=== PATIENT | female | born 2000 | race Asian ===

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

== ENCOUNTER 2019-02-23 16:24 | Emergency (ER) | payer OTHER ==
--- OUTSIDE RECORDS SUMMARY | 2019-02-23 16:41 | XMS REPORT | Continuity of Care Document ---
:2000 Author Organization [facility] Address [address] [place] [address] Phone Care Team Providers Name Role Phone Richard Courtney NP Unavailable Unavailable Allergies, Adverse Reactions, Alerts Substance Reaction Status No Known Allergies Active Medications Medication Instructions Dosage Effective Dates Status Comments (start - stop) Depo-Provera 150 IM Q 11-13 weeks - Active mg/mL intramuscular suspension XANAX (unknown Not Available - Active strength) lithium carbonate take 1 capsule by 300 MG - Active 300 mg capsule oral route 2 times every day Adderall 5 mg tablet - Active Lexapro 5 mg tablet - Active Depo-Provera 150 - Active mg/mL intramuscular suspension Problems Condition Effective Dates (start - Clinical Status Comments stop) Human immunodeficiency virus [HIV] - counseling Encntr screen for infections w sexl mode of transmiss Encounter for oth general cnsl and advice on contraception Encounter for screening for human - immunodeficiency virus Encounter for initial prescription of injectable contracep Encounter for surveillance of injectable contraceptive Encntr screen for infections w sexl mode of transmiss Human immunodeficiency virus [HIV] - counseling Encounter for screening for human - immunodeficiency virus Encounter for surveillance of injectable contraceptive Encntr screen for infections w sexl mode of transmiss Procedures Procedure Date PREVENTIVE COUNSELING, 8-14 Minutes N.GONORRHOEAE, DNA, AMP PROB CHYLMD DNA, AMP PROBE TRICHOMONAS VAGIN, DIR PROBE OFFICE/OUTPATIENT VISIT, EST HIV-1/HIV-2, SINGLE ASSAY OTHER Medical Services Contraceptive Felt Tipping Machine Tender.Svc. Other Felt Tipping Machine Tender.Svc. STI Results Test Name Date and Time Measure Units Reference Range Abnormal Flag Status Comments No information Advance Directives Directive Yes / No Effective Date File Name No information Encounters Encounter Practice Location Reason(s) Diagnoses Date Provider Providers Description For Visit Copied on Encounter PREVENTIVE [facility] STI Human [place]- Referring COUNSELING, [facility] [place] Testing No immunodeficiency [place] Provider: 8-14 Minutes Southern Symptoms virus [HIV] 9 [place]. [place] Finger (F) (chief counselingEncntr [address] [place], [address] complaint) screen for [address] [place], [address] infections [address], [address], [place], mode of [place], [place], [place], transmissEncounter [place], [place], [id number], [place] [address]. [place], [address]. [place] cnsl and advice on tel:+ tel:+[phone] tel:+[phone] contraceptionEncoun [phone] for screening for human immunodeficiency virus [facility] Encounter for Dec- White Referring [facility] [place] initial [place]. Provider: [facility] prescription of [address] [place] [address] injectable [place], [address], [address] [place], St, St, [place], [place], [place], [address], [place], [address]. [id number], [place]. [place] tel:[phone] [facility] Encounter for Mar- White Referring [facility] [place] surveillance of [place]. Provider: [facility] injectable [address] [place] [address] contraceptiveEncntr [place], [address] [place] infections w sexl [place], St, St, [place], [place], [place], [address], [place], [address]. [id number], [place]. [place] tel:[phone] [facility] Human Julio C- White Referring [facility] [place] immunodeficiency [place]. Provider: [place] virus [HIV] 9 [address] [address] counselingEncounter [place], [address], [address] [place] human [place], St, St, [place], immunodeficiency [place], [place] [address], [place], [address]. [id number], surveillance of [place]. [place] injectable tel:[phone] contraceptiveEncntr [id number] screen for infections w sexl mode of transmiss Family History Family Member Diagnosis Age At Onset No information Immunizations Vaccine Date Status Comments No information Payers Payer name Insurance type Covered green party ID Authorization(s) Exchange MVP CI [id number] FPBP PRESUMPTIVE ELIGIBILITY [id number] Social History Type Description Quantity Date Captured [...] For Visit Most recent encounter only, dated '01/25/2019 14:30'. STI Testing No Symptoms (F) (chief complaint) Reason For Referral Reason For [...] assessment Human immunodeficiency virus [HIV] counseling assessment Encntr screen for infections w sexl mode of transmiss assessment Encounter for oth general cnsl and advice on contraception 2018 assessment Encounter for screening for human immunodeficiency virus 2018 Goals Health Concern Goal Type Priority Status Date No information Medical Equipment Description Device [place] Device Identifier Effective Dates (start - stop ) Status No information Mental Status Date Cognitive Assessment No information Health Concerns Observation Date No information Concern Status Date No information
--- OUTSIDE RECORDS SUMMARY | 2019-02-23 16:41 | XMS REPORT | Continuity of Care Document ---
:2000 Author Organization [facility] Address [address] [place] [address] Phone Care Team Providers Name Role Phone [...] immunodeficiency virus [HIV] - counseling Encounter for surveillance of injectable contraceptive Human immunodeficiency virus [HIV] - counseling Encntr [...] of transmiss Procedures Procedure Date PREVENTIVE COUNSELING, Under 8 Minutes OFFICE/OUTPATIENT VISIT, EST OTHER Medical Services Contraceptive Account Receivable Clerk.Svc. Other Account Receivable Clerk.Svc. STI Results Test Name Date and Time Measure Units Reference Range Abnormal Flag Status Comments No information Advance Directives Directive Yes / No Effective Date File Name No information Encounters Encounter Practice Location Reason(s) Diagnoses Date Provider Providers Description For Visit Copied on Encounter OFFICE/OUTPA [facility] Genital Human [place] Referring TIENT VISIT, [facility] [place] Lesions immunodeficiency 8 [place]. Provider: DRE [facility] a/o Bumps virus [HIV] 9 [address] [place] [address] a/o Sores counselingEncounter [place], [address], [address] (chief for surveillance of St, [address] [place] complaint) injectable [place], St, [place], [place], contraceptive [place], [place], [address], [place], [address]. [id number], [place]. [place] tel:[phone] [facility] [place]- Referring [facility] [place] immunodeficiency 3-201 [place] Provider: [facility] virus [HIV] 9 Sue[place]. [place] Finger counselingEncntr [address] [place] [place], [address] screen for [place], [address] [place] infections [address] [place] [address] [address], [place], mode of [place], [place], [place], trans[place]ounter [place], [place], [id number], [place] [address]. [place], [address]. [place] cnsl and advice on tel:+ tel:+60 tel:[phone] contraceptionEncoun [phone] for screening for human immunodeficiency virus [facility] Encounter for Dec- White Referring [facility] [place] initial [place]. Provider: [facility] prescription of 9 [address] [place] [address] injectable [place], [address], [address] [place], St, St, [place], [place], [place], [address], [place], [address]. [id number], [place]. [place] tel:[phone] [facility] Encounter for Mar- White Referring [facility] [place] surveillance of [place]. Provider: [facility] injectable [address] [place] [address] contraceptiveEncntr [place], [address], [address] [place] infections w sexl [place], St, St, [place], mode [place]miss [place], [place], [address], [place], [address]. [id number], [place]. [place] tel:[phone] [facility] Human Julio C-0 White Referring [facility] [place] immunodeficiency [place]. Provider: Angela virus [HIV] 9 [address] [place] [address] counselingEncounter [place], [address], [address], [address] [place] human [place], St, St, [place], immunodeficiency [place], [place] [address], [place], [address]. [id number], surveillance of [place]. [place] injectable tel:[phone] contraceptiveEncntr [id number] screen for infections w sexl mode of transmiss Family History Family Member Diagnosis Age At Onset No information Immunizations Vaccine Date Status Comments No information Payers Payer name Insurance type Covered republican ID Authorization(s) MVP CI [id number] FPBP PRESUMPTIVE ELIGIBILITY [id number] Social History Type Description Quantity Date Captured [...] For Visit Most recent encounter only, dated '01/30/2019 10:40'. Genital Lesions a/ o Bumps a/o Sores (chief complaint) Reason For Referral Reason For [...] immunodeficiency virus [HIV] counseling assessment Encounter for surveillance of injectable contraceptive Goals Health Concern Goal Type Priority Status Date No information Medical Equipment Description Device [place] Device Identifier Effective Dates (start - stop ) Status No information Mental Status Date Cognitive Assessment No information Health Concerns Observation Date No information Concern Status Date No information
--- NOTE | 2019-02-23 17:39 | ED ---
Psychiatric Complaint - HPI Summary HPI Summary: 18 year old F presenting to [facility] accompanied by two female companions requests refill for lithium 300 mg which she states she takes twice a day. Patient states that today is her first day not taking lithium and she is beginning to feel miserable. Patient states she called her psychiatrist, once last week and once a couple days ago, but has not heard back yet. Patient states she hasn't received an email from [facility] pharmacy about receiving a prescription. Patient states that she has an appointment with her psychiatrist next week. Per nurse, patient made comments about wanting to hurt herself, thoughts about cutting, but hasn't attempted to hurt herself. Symptoms aggravated by nothing. Symptoms alleviated by nothing. - History Of Current Complaint Chief Complaint: EDMedicationRefill Time Seen by Provider: 02/23/19 17:12 Hx Obtained From: Patient Hx Last Menstrual Period: NOW Onset/Duration: Lasting Hours, Still Present Timing: Constant Aggravating Factor(s): Nothing Alleviating Factor(s): Nothing Has Suicidal: Reports: Thoughts - Allergies/Home Medications Allergies/Adverse Reactions: Allergies Allergy/AdvReac Type Severity Reaction Status Date / Time No Known Allergies Allergy Verified 02/23/19 16:34 PMH/Surg Hx/FS Hx/Imm Hx Cardiovascular History: Denies: Hx Atrial Fibrillation, Hx Congenital Heart Disease, Hx Congestive Heart Failure, Hx Coronary Artery Disease GI History: Reports: Hx Irritable Bowel Sensory History: Denies: Hx Contacts or Glasses, Hx Hearing Aid Opthamlomology History: Denies: Hx Contacts or Glasses Psychiatric History: Reports: Hx Anxiety, Hx Attention Deficit Hyperactivity Disorder, Hx Depression, Hx Bipolar Disorder, Hx Suicide Attempt, Hx of Violent Episodes Against Others, Hx Substance Abuse, Other Psychiatric Issues/Disorders - cutting, suicidal ideation Denies: Hx Eating Disorder - Surgical History Surgery Procedure, Year, and Place: n/a - Immunization History Date of Tetanus Vaccine: utd Date of Influenza Vaccine: fall 2016 Infectious Disease History: No Infectious Disease History: Denies: Traveled Outside the [place] in Last 30 Days - Family History Known Family History: Positive: Hypertension, Other - GRANDFATHER LUNG CA/FHX OF DEPRESSION - Social History Alcohol Use: Occasionally Hx Substance Use: Yes Substance Use Type: Reports: Cocaine, Marijuana Substance Use Comment - Amount & Last Used: Pt. claims to have tried cocaine and she is experimenting with other drugs Hx Tobacco Use: Yes Smoking Status (MU): Current Some Day Smoker Type: Cigarettes Amount Used/How Often: 3 CIG/DAY Review of Systems Negative: Fever Positive: Other - suicial ideation, suicidal plan; NEG: suicidal attempt All Other Systems Reviewed And Are Negative: Yes Physical Exam - Summary Physical Exam Summary: VITAL SIGNS: Reviewed. GENERAL: Patient is a well-developed and nourished FEMALE who is lying comfortable in the stretcher. Patient is not in any acute respiratory distress. HEAD AND FACE: No signs of trauma. No ecchymosis, hematomas or skull depressions. No sinus tenderness. EYES: PERRLA, EOMI x 2, No injected conjunctiva, no nystagmus. EARS: Hearing grossly intact. Ear canals and tympanic membranes are within normal limits. MOUTH: Oropharynx within normal limits. NECK: Supple, trachea is midline, no adenopathy, no JVD, no carotid bruit, no c- spine tenderness, neck with full ROM. CHEST: Symmetric, no tenderness at palpation. LUNGS: Clear to auscultation bilaterally. No wheezing or crackles. CVS: Regular rate and rhythm, S1 and S2 present, no murmurs or gallops appreciated. ABDOMEN: Soft, non-tender. No signs of distention. No rebound, no guarding, and no masses palpated. Bowel sounds are normal. EXTREMITIES: FROM in all major joints, no edema, no cyanosis or clubbing. NEURO: Alert and oriented x 3. No acute neurological deficits. Speech is normal and follows commands. SKIN: Dry and warm. PSYCH: Depressed, quiet, and reports suicidal thoughts, and denies suicidal attempt. No homicidal thoughts or plan. No signs of psychosis or pressure speech. No tangential speech. Triage Information Reviewed: Yes Vital Signs On Initial Exam: Initial Vitals Temp Pulse Resp BP Pulse Ox 99.2 F 126 14 110/77 99 02/23/19 16:30 02/23/19 16:30 02/23/19 16:30 02/23/19 16:30 02/23/19 16:30 Vital Signs Reviewed: Yes Diagnostics - Vital Signs Vital Signs Temp Pulse Resp BP Pulse Ox 02/23/19 16:30 99.2 F 126 14 110/77 99 - Laboratory Result Diagrams: 02/23/19 18:00 02/23/19 18:00 Lab Statement: Any lab studies that have been ordered have been reviewed, and results considered in the medical decision making process. Re-Evaluation - Re-Evaluation First Eval Re-Evaluation Time: 17:48 Change: Unchanged Comment: patient is medically cleared for MHE Course/Dx - Course Assessment/Plan: Blood work w/o any significant abnormality. She is medically cleared. She is awaiting a MHE. Patient will be signed out to Dr. Todd at shift change. - Differential Dx/Clinical Impression Differential Diagnosis/HQI/PQRI: Positive: Bipolar Disorder Provider Diagnosis: Depression Discharge ED - Sign-Out/Discharge Documenting (check all that apply): Sign-Out Patient Signing out patient TO: Romie Todd - awaiting MHE Patient Received Moderate/Deep Sedation with Procedure: No - Discharge Plan Condition: Stable Referrals: Tristen Kay MD [Primary Care Provider] - - Billing Disposition and Condition Condition: STABLE - Attestation Statements Document Initiated by Scribe: Yes Documenting Scribe: Neli Lopez Provider For Whom Shabbiribe is Documenting (Include Credential): Tapan Gonzales MD Scribe Attestation: Neli Tavera, scribed for Tapan Gonzales MD on 02/23/19 at 1853. Scribe Documentation Reviewed: Yes Provider Attestation: The documentation as recorded by the Neli martinez accurately reflects the service I personally performed and the decisions made by me, Tapan Gonzales MD Status of Scribe Document: Viewed
[2019-02-23 18:08] LABS: ABS Eosinophils 0.1 10^3/ul (0-0.6); ABS Lymphocytes 2.5 10^3/ul (1.0-4.8); ABS Monocytes 0.4 10^3/ul (0-0.8); ABS Neutrophils 3.1 10^3/ul (1.5-7.7); Eosinophil % 1.4 %; Hematocrit 38 % (35-47); Hemoglobin 12.8 g/dL (12.0-16.0); Lymphocyte % 40.3 %; Mean Corpuscular HGB Conc 34 g/dL (31-36); Mean Corpuscular Hemoglobin 26 pg (27-31); Mean Corpuscular Volume 78 fL (80-97); Mean Platelet Volume 7.2 fL (7.4-10.4); Platelet Count 284 10^3/uL (150-450); Red Blood Count 4.92 10^6 /uL (3.70-4.87); Red Cell Distribution Width 14 % (10-15); White Blood Count 6.1 10^3/uL (3.5-10.8)
[2019-02-23 18:24] LABS: ALT 25 U/L (7-52); AST 24 U/L (13-39); Albumin 4.5 g/dL (3.2-5.2); Albumin/Globulin Ratio 1.7 (1-3); Alkaline Phosphatase 54 U/L (34-104); Anion Gap 5 mmol/L (2-11); BUN/Creatinine Ratio 13.4 (8-20); Blood Urea Nitrogen 11 mg/dL (6-24); CO2 Carbon Dioxide 26 mmol/L (22-32); Calcium 9.4 mg/dL (8.6-10.3); Chloride 107 mmol/L (101-111); EGFR African American 108.7 (>60); EGFR Non-African American 89.8 (>60); Globulin 2.7 g/dL (2-4); Glucose 103 mg/dL (70-100); Potassium 3.9 mmol/L (3.5-5.0); Sodium 138 mmol/L (135-145); Total Protein 7.2 g/dL (6.4-8.9)
[2019-02-23 18:48] LABS: Urine Appearance Clear; Urine Bacteria Absent (Absent); Urine Bilirubin Negative (Negative); Urine Blood 3+ (Negative); Urine Color Yellow; Urine Glucose Negative (Negative); Urine Ketones Negative (Negative); Urine Nitrite Negative (Negative); Urine Protein Negative (Negative); Urine Red Blood Cell 2+(6-10/hpf) (Absent); Urine Specific Gravity 1.009 (1.010-1.030); Urine Squamous Epithelial Cell Present (Absent); Urine Urobilinogen Negative (Negative); Urine White Blood Cell 2+(11-20/hpf) (Absent)
[2019-02-23 19:00] LABS: Acetaminophen < 15 mcg/mL; Alcohol < 10 mg/dL (<10); Lithium < 0.10 mmol/L (0.6-1.2); Salicylate < 2.50 mg/dL (<30)
[2019-02-23 19:05] LABS: Urine Benzodiazepine Screen Presumptive Positive (None Detect); Urine Opiates Screen None Detected (None Detect)
[2019-02-23 19:14] LABS: TSH (Thyroid Stimulating Horm) 2.46 mcIU/mL (0.34-5.60)
--- NOTE | 2019-02-23 21:26 | ED ---
Progress - Progress Note Progress Note: The patient is a sign-out from Dr. Tapan Gonzales MD, to Dr. Romie Todd MD, at change of shift at 1900 on 02/23/19, pending MHE and disposition. 0100 - Symone Moseley, mental health floor service worker spring, reports that Dr. Carrera, psychiatry, has deemed the pt clear for discharge with dx of depressive episode and plan for outpatient treatment; she requests rx for [facility]mark until she can get her usual on refilled Course/Dx - Course Course Of Treatment: The patient is a sign-out from Dr. Tapan Gonzales MD, to Dr. Romie Todd MD, at change of shift at 1900 on 02/23/19, pending MHE and disposition. MHE by floor service worker spring Symone Moseley approved by Dr. Carrera, psychiatry, who deems discharge appropriate with dx of depressive disorder and outpatient treatment plan. Landmark is ordered for the pt as temporary rx as she does not have usual rx filled. - Diagnoses Provider Diagnoses: Depressive episode - Provider Notifications Discussed Care Of Patient With: Symone Moseley - mental health floor service worker spring Time Discussed With Above Provider: 01:00 Instructed by Provider To: Other - Symone reports that Dr. Carrera has cleared the pt for discharge with dx of depressive episode and plan for outpatient treatment. She requests temporary [facility]mark rx until she is able to fill hers. Discharge ED - Sign-Out/Discharge Documenting (check all that apply): Patient Departure - Patient will be discharged home., Receiving Sign-Out Receiving patient FROM: Tapan Gonzales - Patient is a sign-out from Dr. Tapan Gonzales MD, at change of shift 1900 on 02/23/19, pending MHE and disposition. Patient Received Moderate/Deep Sedation with Procedure: No - Discharge Plan Condition: Stable Disposition: HOME Prescriptions: [facility]mark Carbonate TAB* 300 mg PO BID #30 tab Patient Education Materials: Depression (ED) Referrals: [facility] [Outside] - As Soon As Possible (Keep your scheduled appointment with Bella for next week.) Tristen Kay MD [Primary Care Provider] - Additional Instructions: Per completion of a mental health evaluation, you are cleared for release and do not require inpatient psychiatric hospitalization at this time. Please go to nearest emergency room or call 911 if safety concerns arise or condition worsens. Important Phone Numbers: [facility] ph:[phone] Su[facility] Crisis [facility] ph:[phone] National Suicide Prevention Lifeline ph:[phone] USUQ (7267) [facility] ph:[phone] Alcoholics Anonymous ph:[phone] [facility] ph:[phone] [facility] ph:[phone] - Billing Disposition and Condition Condition: STABLE Disposition: Home - Attestation Statements Document Initiated by Scribe: Yes Documenting Scribe: Viry Ricardo Provider For Whom Zaira is Documenting (Include Credential): Dr. Romie Todd MD Scribe Attestation: Viry Tavera scribed for Dr. Romie Todd MD on 02/25/19 at 0450. Scribe Documentation Reviewed: Yes Provider Attestation: The documentation as recorded by the Viry martinez accurately reflects the service I personally performed and the decisions made by me, Dr. Romie Todd MD Status of Scribe Document: Viewed
[2019-02-24 01:36] VITALS: BP 106/65
== END 2019-02-24 01:18 | disposition home or self-care (01) ==
LOC: ED 16:24
DX: F32.9 Major depressive disorder, single episode, unspecified (principal); F41.9 Anxiety disorder, unspecified; F90.9 Attention-deficit hyperactivity disorder, unspecified type; F17.210 Nicotine dependence, cigarettes, uncomplicated; Z79.899 Other long term (current) drug therapy
CPT/HCPCS: 36415; 80053; 80178; 80307; 80320; 80329; 81003; 81015; 84443; 85025; 87086; 99285; G0480